=== PATIENT | male | born 1965 | race Caucasian/White ===

== ENCOUNTER 2017-08-29 10:52 | Emergency (ER) | payer OTHER ==
[~2017-08-29] VITALS: Ht 167.6 cm; Wt 76.7 kg
[~2017-08-29 10:52] MED LIST: FLEXERIL10 MG PO; MOBIC15 MG PO
[2017-08-29 14:03] VITALS: BP 124/81
== END 2017-08-29 14:03 | disposition home or self-care (01) ==
LOC: EME 10:52
PROC: 0H9BXZZ Drainage of Right Upper Arm Skin, External Approach (ICD-10-PCS; principal; 2017-08-29)
DX: L02.413 Cutaneous abscess of right upper limb (principal); F17.200 Nicotine dependence, unspecified, uncomplicated; Z88.0 Allergy status to penicillin
CPT/HCPCS: 99281; 99284

== ENCOUNTER → 2017-09-13 | Outpatient (CLI) | payer OTHER | END | disposition home or self-care (01) | LOC: EEG 08:35 | DX: R51 Headache (principal) | CPT/HCPCS: 95954 ==